=== PATIENT | female | born 1980 | race Caucasian/White ===

== ENCOUNTER → 2022-06-04 | Outpatient (CLI) | payer OTHER | LOC: SLEEPLAB 18:00 | PROVIDERS: ATTEND Family Medicine | DX: G47.10 Hypersomnia, unspecified (principal); F51.9 Sleep disorder not due to a substance or known physiological condition, unspecified; G47.9 Sleep disorder, unspecified | CPT/HCPCS: 95800 ==

== ENCOUNTER 2022-12-21 17:00 | Outpatient (CLI) | payer OTHER | END 2022-12-21 17:01 | disposition home or self-care (01) | LOC: SLEEPLAB 17:00 | PROVIDERS: ATTEND Family Medicine | DX: G47.33 Obstructive sleep apnea (adult) (pediatric) (principal); G47.10 Hypersomnia, unspecified; G47.9 Sleep disorder, unspecified; R51.9 Headache, unspecified; F51.9 Sleep disorder not due to a substance or known physiological condition, unspecified; G31.84 Mild cognitive impairment of uncertain or unknown etiology; R06.83 Snoring; G47.00 Insomnia, unspecified | CPT/HCPCS: 95810 ==